=== PATIENT | male | born 1970 | race Caucasian/White ===

== ENCOUNTER 2020-02-13 10:11 | Emergency (ER) | payer OTHER ==
[~2020-02-13] VITALS: Ht 185.4 cm; Wt 109.0 kg
[2020-02-13 11:00] LABS: ALBUMIN 4.3 g/dL (3.2-5.0); ALKALINE PHOSPHATASE 56 u/l (38-126); ANION GAP 10 (6-22 (CALC)); BILIRUBIN, TOTAL 0.7 mg/dL (0.0-1.4); BUN 14 mg/dL (9-20); BUN/CREATININE RATIO 17 (12-20 (CALC)); CARBON DIOXIDE 26 mmol/l (22-30); CHLORIDE 103 mmol/l (95-108); CREATININE 0.8 mg/dL (0.7-1.3); GFR > 60 ML/MIN (>=60 (CALC)); GFR FOR AFR.AMER. > 60 ML/MIN (>=60 (CALC)); LIPASE 100 u/l (23-300); POTASSIUM 3.9 mmol/l (3.5-5.1); SGOT/AST 45 u/l (17-59); SODIUM 136 mmol/l (137-146); TOTAL PROTEIN 7.4 g/dL (6.3-8.2)
[2020-02-13 12:25] LABS: HEMATOCRIT 45.4 % (39.0-50.0); HEMOGLOBIN 15.4 g/dl (14.0-18.0); IMMATURE GRANULOCYTES 0.3 % (0.0-5.0); MEAN CELL VOLUME 92.8 fL CALC (80.0-100.0); MEAN CORPUSCULAR HGB 31.5 pG CALC (26.0-32.0); MEAN CORPUSCULAR HGB CONC 33.9 g/dL CAL (32.0-36.0); NEUT# 3.1 thou/uL (1.82-7.42); RED BLOOD COUNT 4.89 mill/uL (4.70-6.10); RED CELL DISTRI WIDTH 13.1 % (11.5-15.5)
[2020-02-13 14:07] VITALS: BP 131/75
== END 2020-02-13 14:17 | disposition home or self-care (01) | DRG 313 ==
LOC: ED 10:11
PROVIDERS: Family Medicine
DX: R07.9 Chest pain, unspecified (principal); Z20.828 Contact with and (suspected) exposure to other viral communicable diseases

== ENCOUNTER 2020-07-10 12:16 | Emergency (ER) | payer OTHER ==
[~2020-07-10] VITALS: Ht 185.4 cm; Wt 112.0 kg
[2020-07-10] MEDS ORDERED: OFLOXACIN0.3 % OD (13:20)
[2020-07-10 13:36] VITALS: BP 137/77
== END 2020-07-10 13:36 | disposition home or self-care (01) | DRG 115 ==
LOC: ED 12:16
PROC: 08C8XZZ Extirpation of Matter from Right Cornea, External Approach (ICD-10-PCS; principal; 2020-07-10)
DX: S05.51XA Penetrating wound with foreign body of right eyeball, initial encounter (principal); D86.9 Sarcoidosis, unspecified; X58.XXXA Exposure to other specified factors, initial encounter; Y93.89 Activity, other specified

== ENCOUNTER 2022-02-06 20:32 | Emergency (ER) | payer OTHER ==
[~2022-02-06] VITALS: Ht 185.4 cm; Wt 109.1 kg
[~2022-02-06 20:32] MED LIST: OFLOXACIN0.3 % OD
[2022-02-06 20:52] VITALS: BP 134/84
[2022-02-06 21:00] VITALS: BP 129/84
[2022-02-06] MEDS ORDERED: VIBRAMYCIN100 M2 PO (21:11)
[2022-02-06 21:25] VITALS: BP 129/84
== END 2022-02-06 21:25 | disposition home or self-care (01) | DRG 918 ==
LOC: ED 20:32
DX: T63.461A Toxic effect of venom of wasps, accidental (unintentional), initial encounter (principal); L03.115 Cellulitis of right lower limb